=== PATIENT | female | born 1945 | race Caucasian/White ===

== ENCOUNTER 2016-07-29 14:15 | Emergency (ER) | payer MEDICARE ==
[2016-07-29] MEDS ORDERED: LIDOCAINE 1% INJ-PF (10 MG/ML) 30 ML SDV INJ ONE ×2 (14:46→14:48)
--- NOTE | 2016-07-29 14:56 | ER Document Report ---
ED General - General Chief Complaint: Arm Problem Stated Complaint: POSSIBLE INFECTION RIGHT ARM PIT Time seen by provider: 14:37 Mode of Arrival: Stretcher - U and recent that he is in the [facility] family has bypass surgery is Melissa is a now gone with a by Information source: Patient - HPI Notes: Patient presents with intermittent episodes of folliculitis that she's had in the past but they usually improved. She states in her right axillary region she 's had an area that has improved with a salve, but then worsened over the last 2 -3 days and she questions whether or not she may have had a low-grade fever. She arrives afebrile. Patient also reports she has intermittent episodes of nonexertional muscular pain through her chest that is worse when she moves her left arm. She states she's had this for over 40 years and is had over $10,000 worth of workups for the same with no other etiology being found besides a muscular sprain. She denies any chest pain today, and reports no exertional pain in general with walking or going up steps or other activities. Patient reports her last cardiac stress test was approximately 7-8 years ago. She denies any associated dyspnea or nausea or vomiting. No back pain. Patient is a smoker. Family history father of IA. - Related Data Allergies/Adverse Reactions: acetaminophen [From Tylenol] Allergy (Verified 04/04/13 20:15) Iodinated Contrast Media - Oral and [IV Dye, Iodine Containing] Allergy ( Verified 04/04/13 20:16) morphine [Morphine] Allergy (Verified 04/04/13 20:16) Past Medical History - General Information source: Patient - Social History Smoking Status: Former Smoker Chew tobacco use (# tins/day): No Frequency of alcohol use: Occasional Drug Abuse: None Lives with: Family Family History: CAD - Patient's father of an IA at age 46. Mother at age 60. - Past Medical History Cardiac Medical History: Reports: Hx Hypertension Pulmonary Medical History: Reports: Hx Bronchitis - chronic, Hx Pneumonia - 1978 Past Surgical History: Reports: Hx Orthopedic Surgery - Right ankle rebuilt in 1979, Hx Tonsillectomy - when pt was 22 yrs old - Immunizations Hx Diphtheria, Pertussis, Tetanus Vaccination: Yes Review of Systems - Review of Systems Notes: REVIEW OF SYSTEMS: CONSTITUTIONAL : Denies sweats. Denies recent illness. EENT: Denies eye, ear, throat, or mouth pain or symptoms. Denies nasal or sinus congestion or discharge. Denies throat, tongue, or mouth swelling or difficulty swallowing. CARDIOVASCULAR: Denies palpitations or racing or irregular heart beat. Denies ankle edema. RESPIRATORY: Denies cough, cold, or chest congestion. Denies shortness of breath, difficulty breathing, or wheezing. GASTROINTESTINAL: Denies abdominal pain or distention. Denies nausea, vomiting , or diarrhea. Denies blood in vomitus, stools, or per rectum. Denies black, tarry stools. Denies constipation. GENITOURINARY: Denies difficulty urinating, painful urination, burning, frequency, blood in urine, or discharge. FEMALE GENITOURINARY: Denies vaginal bleeding, heavy or abnormal periods, irregular periods. Denies vaginal discharge or odor. MUSCULOSKELETAL: Denies back or neck pain or stiffness. Denies joint pain or swelling. 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 HEMATOLOGIC : Denies easy bruising or bleeding. LYMPHATIC: Denies swollen, enlarged glands. NEUROLOGICAL: Denies confusion or altered mental status. Denies passing out or loss of consciousness. Denies dizziness or lightheadedness. Denies headache. Denies weakness or paralysis or loss of use of either side. Denies problems with gait or speech. Denies sensory loss, numbness, or tingling. Denies seizures. PSYCHIATRIC: Denies anxiety or stress. Denies depression, suicidal ideation, or homicidal ideation. ALL OTHER SYSTEMS REVIEWED AND NEGATIVE. Dictation was performed using [employer] voice recognition software Physical Exam - Vital signs Vitals: Resp Pulse Ox 15 97 07/29/16 15:16 07/29/16 15:16 - Notes Notes: PHYSICAL EXAMINATION: GENERAL: Well-appearing, well-nourished and in no acute distress. HEAD: Atraumatic, normocephalic. EYES: Pupils equal round and reactive to light, extraocular movements intact, conjunctiva are normal. ENT: Nares patent, oropharynx clear without exudates. Moist mucous membranes. NECK: Normal range of motion, supple without lymphadenopathy LUNGS: Breath sounds clear to auscultation bilaterally and equal. No wheezes rales or rhonchi. HEART: Regular rate and rhythm without murmurs. Unable to reproduce any pain to the chest. No erythema. No crepitance. ABDOMEN: Soft, nontender, nondistended abdomen. No guarding, no rebound. No masses appreciated. Female : deferred Musculoskeletal: Normal range of motion, no pitting or edema. No cyanosis. NEUROLOGICAL: Cranial nerves grossly intact. Normal speech, normal gait. Normal sensory, motor exams PSYCH: Normal mood, normal affect. SKIN: Warm, Dry, normal turgor. Patient has some mild folliculitis on the legs, but none on the trunk or in the other intertriginous areas with exception of the right axillary region where she has what appears to be a area of one draining abscess and one 2 x 1.5 cm abscess. Minimal adenopathy noted otherwise. Course - Re-evaluation Re-evalutation: 07/29/16 15:54 Following discussion of risks alternatives benefits, the patient had the right axillary wound area cleaned with Hibiclens, then the wound was locally infiltrate with lidocaine 1% 1 mL, then a small superficial incision 6 mm was made into the draining wound to better facilitate drainage without any significant additional purulence being obtained. After this a 1 cm incision was made into the right axillary abscess and purulent material was obtained which was sent for culture. The wounds were irrigated with saline then the upper abscess was Hibiclens prepped sterilely draped and then packed with quarter-inch iodoform gauze. Patient tolerated the procedure well. Complications none. Blood loss less than 10 mL. Discussion was undertaken with the patient about the need for outpatient cardiology follow-up for repeat cardiac stress testing. She describes her intermittent chest discomfort as being nonexertional, but she has smoking history and family history risk factors with last cardiac stress test several years ago. 07/29/16 15:59 No evidence for acute IA or CHF or obvious cardiac ischemia, but the patient is warned that she needs to follow up with cardiology as soon as possible given her risk factors of family history and prior smoking history. 07/29/16 17:11 - Vital Signs Vital signs: Temp Pulse Resp BP Pulse Ox 34 H 168/88 H 97 07/29/16 16:07 07/29/16 16:07 07/29/16 16:07 - Laboratory Result Diagrams: 07/29/16 15:19 07/29/16 15:19 - EKG Interpretation by Me EKG shows normal: Sinus rhythm Additional EKG results interpreted by me: 04/24/17 15:08 EKG as interpreted by me showed normal sinus rhythm a rate of 82. There is no gross evidence for acute IA or ischemia identified. There is no change from previous EKG reviewed from 04/04/13. Discharge - Discharge Clinical Impression: Abscess Chest pain Qualifiers: Chest pain type: unspecified Qualified Code(s): R07.9 - Chest pain, unspecified Condition: Stable Disposition: HOME, SELF-CARE Instructions: Abscess ([facility]), Post Incision and Drainage, Family Physicians / Practices Additional Instructions: Chest Pain of Unclear Cause The exact cause of your chest pain isn't clear. Fortunately, there is no evidence of a dangerous medical condition. Further testing may be required to find the source of the pain. Most often, we find that this pain is coming from the chest wall -- the muscles or rib joints in the chest. But chest pain can come from the lung and lung lining, the esophagus, the heart valves or heart lining, and even the stomach or gallbladder. Rest. Eat lightly until the pain is gone. We may prescribe medicine for pain and inflammation. You should call the physician immediately if the pain radiates to the shoulder, jaw or arms; if you start to run a fever or develop a cough; or if you develop shortness of breath, or other new or alarming symptoms. Wound packing needs to come out in 2 days. Keep the area clean and apply warm compresses. Return to the ED in case of chest pain, difficulty breathing, fever or chills or worsening redness or swelling. Follow-up with Dr. Mccormick for repeat cardiac stress testing. Prescriptions: Clindamycin HCl 300 mg PO TID #30 capsule Referrals: SUKH MCCORMICK MD [ACTIVE STAFF] - Follow up as needed
[2016-07-29 15:28] LABS: ABSOLUTE BASOPHILS # (AUTO) 0.1 10^3/uL (0.0-0.2); ABSOLUTE EOSINOPHILS # (AUTO) 0.3 10^3/uL (0.0-0.6); ABSOLUTE LYMPHOCYTES (AUTO) 2.5 10^3/uL (0.5-4.7); ABSOLUTE MONOCYTES (AUTO) 0.6 10^3/uL (0.1-1.4); BASOPHILS % (AUTO) 0.6 % (0-2); EOSINOPHILS % (AUTO) 2.8 % (0-6); HEMATOCRIT 40.7 % (36.0-47.0); HEMOGLOBIN 13.7 g/dL (12.0-15.5); HGB HCT DIFFERENCE 0.4; LYMPHOCYTES % (AUTO) 26.4 % (13-45); MEAN CORPUSCULAR HEMOGLOBIN 28.1 pg (27.0-33.4); MEAN CORPUSCULAR HGB CONC 33.7 g/dL (32.0-36.0); MEAN CORPUSCULAR VOLUME 83 fl (80-97); MONOCYTES % (AUTO) 6.1 % (3-13); RED BLOOD COUNT 4.89 10^6/uL (3.72-5.28); RED CELL DISTRIBUTION WIDTH 13.4 % (11.5-14.0); SEGMENTED NEUTROPHILS % (AUTO) 64.1 % (42-78); WHITE BLOOD COUNT 9.4 10^3/uL (4.0-10.5)
[2016-07-29 15:45] LABS: ALANINE AMINOTRANSFERASE 25 U/L (9-52); ALBUMIN 4.5 g/dL (3.5-5.0); ALKALINE PHOSPHATASE 57 U/L (38-126); ANION GAP 12 (5-19); ASPARTATE AMINO TRANSFERASE 20 U/L (14-36); BILIRUBIN,DIRECT 0.3 mg/dL (0.0-0.4); BILIRUBIN,TOTAL 0.6 mg/dL (0.2-1.3); BLOOD UREA NITROGEN 13 mg/dL (7-20); CALCIUM 9.8 mg/dL (8.4-10.2); CARBON DIOXIDE 28 mmol/L (22-30); CHLORIDE 104 mmol/L (98-107); CREATININE RESULT 0.71 mg/dL (0.52-1.25); GLUCOSE 98 mg/dL (75-110); POTASSIUM 4.3 mmol/L (3.6-5.0); SODIUM 143.6 mmol/L (137-145); TOTAL PROTEIN 7.2 g/dL (6.3-8.2)
[2016-07-29 16:55] VITALS: BP 168/88
[2016-07-29] MEDS ORDERED: CLINDAMYCIN HCL 150 MG CAPSULE PO ONE (17:06)
--- NOTE | 2016-07-29 21:39 | EKG REPORT ---
SEVERITY:- NORMAL ECG - SINUS RHYTHM : Confirmed by: Bryan Castillo 29-Jul-2016 21:38:25
== END 2016-07-29 17:32 | disposition home or self-care (01) ==
LOC: ER 14:15
PROC: 0H9BXZZ Drainage of Right Upper Arm Skin, External Approach (ICD-10-PCS; principal; 2016-07-29)
DX: L02.411 Cutaneous abscess of right axilla (principal); R07.9 Chest pain, unspecified; L73.9 Follicular disorder, unspecified; F17.200 Nicotine dependence, unspecified, uncomplicated; I10 Essential (primary) hypertension; Z88.6 Allergy status to analgesic agent
CPT/HCPCS: 93005; 99284; 36415; 87070; 87205; 85025; 87077; 80053; 84484; 87186; 71020; 93010; 10060; A9270

== ENCOUNTER 2016-07-31 10:35 | Emergency (ER) | payer MEDICARE ==
[2016-07-31 10:40] VITALS: BP 156/82
--- NOTE | 2016-07-31 11:30 | ER Document Report ---
HPI - HPI Pain Level: 1 Context: 71 yo female c/o rash and itching after 3 doses of clindamycin. pt seen in ED 3 days ago for axillary abscess which was incised and drained. culture report showing + MRSA. Associated Symptoms: None Exacerbated by: Denies Relieved by: Denies Similar symptoms previously: No Recently seen / treated by doctor: Yes - ROS Systems Reviewed and Negative: Yes All other systems reviewed and negative - REPRODUCTIVE LMP: N/A Reproductive: DENIES: : - DERM Skin Color: Other Past Medical History - General Information source: Patient - Social History Smoking Status: Current Every Day Smoker Frequency of alcohol use: None Drug Abuse: None Lives with: Family Family History: CAD - Patient's father of an SC at age 46. Mother at age 60. - Past Medical History Cardiac Medical History: Reports: Hx Hypertension Pulmonary Medical History: Reports: Hx Bronchitis - chronic, Hx Pneumonia - 1978 Renal/ Medical History: Denies: Hx Peritoneal Dialysis Past Surgical History: Reports: Hx Orthopedic Surgery - Right ankle rebuilt in 1979, Hx Tonsillectomy - when pt was 22 yrs old - Immunizations Hx Diphtheria, Pertussis, Tetanus Vaccination: Yes Vertical Provider Document - CONSTITUTIONAL Agree With Documented VS: Yes Exam Limitations: No Limitations - INFECTION CONTROL TRAVEL OUTSIDE OF THE [place] IN LAST 30 DAYS: No - HEENT HEENT: Atraumatic, PERRLA - NECK Neck: Normal Inspection, Supple - RESPIRATORY Respiratory: Breath Sounds Normal, No Respiratory Distress O2 Sat by Pulse Oximetry: 97 - CARDIOVASCULAR Cardiovascular: Regular Rate, Regular Rhythm - NEURO Level of Consciousness: Awake, Alert, Appropriate - DERM Integumentary: Warm, Dry, Abscess - healing abscess right axillary Course - Re-evaluation Re-evalutation: 07/31/16 11:26 BP slightly elevated. pt has hx/o HTN. taking meds as prescribed. - Vital Signs Vital signs: Temp Pulse Resp BP Pulse Ox 98.4 F 104 H 18 156/82 H 97 07/31/16 10:37 07/31/16 10:37 07/31/16 10:37 07/31/16 10:37 07/31/16 10:37 Discharge - Discharge Clinical Impression: Medication intolerance, MRSA (methicillin resistant staph aureus) culture positive, Abscess Condition: Stable Disposition: HOME, SELF-CARE Instructions: Abscess ([facility]), Trimethoprim-Sulfa ([facility]) Additional Instructions: take medication as prescribed you may take Benadryl as needed for itch wash area with soap and water your culture was positive for MRSA. good hand washing is essential. clean common surfaces with clorox follow up with your primary care Prescriptions: Sulfamethoxazole/Trimethoprim [Bactrim Ds Tablet] 1 each PO BID #20 tablet Forms: Elevated Blood Pressure
== END 2016-07-31 11:35 | disposition home or self-care (01) ==
LOC: ER 10:35
DX: L29.9 Pruritus, unspecified (principal); R21 Rash and other nonspecific skin eruption; T36.8X5A Adverse effect of other systemic antibiotics, initial encounter; L02.411 Cutaneous abscess of right axilla; B95.62 Methicillin resistant Staphylococcus aureus infection as the cause of diseases classified elsewhere; F17.200 Nicotine dependence, unspecified, uncomplicated; I10 Essential (primary) hypertension
CPT/HCPCS: 99283

== ENCOUNTER 2017-03-14 11:43 | Emergency (ER) | payer MEDICARE ==
[2017-03-14 12:02] VITALS: BP 181/90
--- NOTE | 2017-03-14 12:40 | ER Document Report ---
HPI - HPI Patient complains to provider of: 3 abscesses under left axilla Onset: Last week Onset/Duration: Gradual Pain Level: 1 Context: 71-year-old female with a history of MRSA is complaining of 3 abscesses under the left axilla. She is not shaving or using deodorant. no Fever or chills. Associated Symptoms: None Exacerbated by: Denies Relieved by: Denies Similar symptoms previously: Yes - ROS ROS below otherwise negative: Yes Systems Reviewed and Negative: Yes All other systems reviewed and negative - REPRODUCTIVE Reproductive: DENIES: : Past Medical History - General Information source: Patient - Social History Smoking Status: Current Every Day Smoker Frequency of alcohol use: None Drug Abuse: None Lives with: Alone Family History: CAD - Patient's father of an NV at age 46. Mother at age 60. - Past Medical History Cardiac Medical History: Reports: Hx Hypertension Pulmonary Medical History: Reports: Hx Bronchitis - chronic, Hx Pneumonia - 1978 Renal/ Medical History: Denies: Hx Peritoneal Dialysis Skin Medical History: Reports Hx MRSA Past Surgical History: Reports: Hx Orthopedic Surgery - Right ankle rebuilt in 1979, Hx Tonsillectomy - when pt was 22 yrs old - Immunizations Hx Diphtheria, Pertussis, Tetanus Vaccination: Yes Vertical Provider Document - CONSTITUTIONAL Agree With Documented VS: Yes Exam Limitations: No Limitations - INFECTION CONTROL TRAVEL OUTSIDE OF THE [place] IN LAST 30 DAYS: No - HEENT HEENT: Normocephalic - NECK Neck: Supple - RESPIRATORY Respiratory: Breath Sounds Normal, No Respiratory Distress O2 Sat by Pulse Oximetry: 97 - CARDIOVASCULAR Cardiovascular: Regular Rate, Regular Rhythm - MUSCULOSKELETAL/EXTREMETIES Musculoskeletal/Extremeties: MAEW, FROM - NEURO Level of Consciousness: Awake, Alert, Appropriate - DERM Integumentary: Abscess - 3 5 mm papular follicular lesions left axilla Course - Vital Signs Vital signs: Temp Pulse Resp BP Pulse Ox 98.4 F 86 16 181/90 H 97 03/14/17 12:00 03/14/17 12:00 03/14/17 12:00 03/14/17 12:00 03/14/17 12:00 Discharge - Discharge Clinical Impression: Folliculitis of left axilla, Medication refill, Hx of primary hypertension Condition: Good Disposition: HOME, SELF-CARE Instructions: Bactroban Ointment ([facility]), Folliculitis ([facility]), Trimethoprim-Sulfa ([facility]) Additional Instructions: to er if worse put small amount of Bactroban in each nostril and squeeze her nostrils together twice a day for 5 days Bactroban 3 times a day to the 3 small abscesses in her left armpit wash hands well finish the Septra antibiotic see your doctor in [place] Please complete the patient satisfaction survey if you get one, and return it.. If you do not receive a survey, then you can go to the [facility] website, [email or web address] and place your comments about your very good care. Thank you very much. It was a pleasure being your medical provider today. Prescriptions: Lisinopril 20 mg PO DAILY #30 tablet Mupirocin [Bactroban 2% Ointment 22 gm] 1 applic TP TID #1 tube Sulfamethoxazole/Trimethoprim [Sulfamethoxazole-Tmp Ds Tablet] 1 each PO BID # 14 tablet Referrals: SACHIN BROWN MD [Primary Care Provider] - Follow up as needed
== END 2017-03-14 13:31 | disposition home or self-care (01) ==
LOC: ER 11:43
DX: L73.9 Follicular disorder, unspecified (principal); I10 Essential (primary) hypertension; F17.200 Nicotine dependence, unspecified, uncomplicated; Z86.14 Personal history of Methicillin resistant Staphylococcus aureus infection
CPT/HCPCS: 99282

== ENCOUNTER 2018-09-12 15:59 | Emergency (ER) | payer MEDICARE ==
[2018-09-12] MEDS ORDERED: CIPROFLOXACIN HCL/DEXAMETH OTIC DROP 7.5 ML AS ONE (16:39)
--- NOTE | 2018-09-12 16:41 | ER Document Report ---
HPI - HPI Time Seen by Provider: 09/12/18 16:39 Pain Level: 3 Notes: Patient is a 73-year-old female with a history of hypertension and MRSA who presents complaining of 3 small swollen areas in her right axilla that she would like evaluated as well as complaining of right ear pain and swelling in the canal for the past couple weeks. Patient believes that she may have an ear infection. She is eating and drinking without difficulty. She is urinating normally. She has no other concerns or complaints. Denies any headache, fever, neck pain, changes in vision/speech/mentation/hearing, URI, sore throat, chest pain, palpitations, syncope, cough, shortness of breath, wheeze, dyspnea, abdominal pain, nausea/vomiting/diarrhea, urinary retention, dysuria, hematuria. - ROS Systems Reviewed and Negative: Yes All other systems reviewed and negative - REPRODUCTIVE Reproductive: DENIES: : Past Medical History - Social History Smoking Status: Current Some Day Smoker Family History: CAD - Patient's father of an AR at age 46. Mother at age 60. - Past Medical History Cardiac Medical History: Reports: Hx Hypertension Pulmonary Medical History: Reports: Hx Bronchitis - chronic, Hx Pneumonia - 1978 Renal/ Medical History: Denies: Hx Peritoneal Dialysis Skin Medical History: Reports Hx MRSA Past Surgical History: Reports: Hx Orthopedic Surgery - Right ankle rebuilt in 1979, Hx Tonsillectomy - when pt was 22 yrs old - Immunizations Hx Diphtheria, Pertussis, Tetanus Vaccination: Yes Vertical Provider Document - CONSTITUTIONAL Agree With Documented VS: Yes Notes: PHYSICAL EXAMINATION: GENERAL: Well-appearing, well-nourished and in no acute distress. A&Ox4. Answers questions appropriately. Moves comfortably w/o notable distress HEAD: Atraumatic, normocephalic. EYES: Pupils equal round and reactive to light, extraocular movements intact, sclera anicteric, conjunctiva are normal. ENT: Rt EAC swollen, tender w/o discharge. Lt EAC wnl. + Tenderness to tragus Rt. No mastoid tenderness bilaterally. TM's intact b/l without erythema, fluid, or perforation. Nares patent and without discharge. oropharynx no erythema without exudates. No tonsilar hypertrophy without erythema or exudate. No palatine shift. Uvula midline. No tongue protrusion. No drooling, hoarseness, or airway compromise. Moist mucous membranes. No sinus tenderness. NECK: Normal range of motion, supple without lymphadenopathy. No rigidity/meningismus. LUNGS: Breath sounds clear to auscultation bilaterally and equal. No wheezes rales or rhonchi. No retractions HEART: Regular rate and rhythm without murmurs, rubs, gallops. NEUROLOGICAL: Normal speech, normal gait. PSYCH: Normal mood, normal affect. SKIN: Rt axilla: there are 3 small approx 0.5cm indurated moveable erythemic papular areas noted w/o obvious fluctuance. No streaks or purulence. Papules/affected area feels superficial and I can get my fingers underneath the whole thing pretty easily. - INFECTION CONTROL TRAVEL OUTSIDE OF THE [place] IN LAST 30 DAYS: No Course - Re-evaluation Re-evalutation: 09/12/18 Patient is an afebrile, well-hydrated, 73-year-old female who presents with acute otitis externa of the right ear as well as very small papular infectious areas to the rt axilla. Vitals are acceptable without significant tachycardia, tachypnea, or hypoxia. PE is otherwise unremarkable. Ear wick and Ciprodex were applied to the right ear. Because of the size of the papules and them being superficial, needle incision and drainage was performed successfully without any complications and scant purulent material was obtained from 2 of the 3. Wound dressing was placed and wound instructions reviewed. Reviewed with patient that if these areas get worse that she may warrant a complete incision and drainage. Wound culture was obtained. Low suspicion for any sepsis, meningitis, severe dehydration, respiratory compromise, mastoiditis, or other systemic emergent condition at this time. Patient is aware that condition can change from initial presentation and she needs to monitor symptoms closely and seek medical attention with any acute changes. I will send her home with a prescription for Keflex and Bactrim. Conservative measures for symptoms otherwise. Recheck with your PCM in 2 to 3 days. Return to the ED with any other worsening/concerning symptoms. Patient is in agreement. - Vital Signs Vital signs: Temp Pulse Resp BP Pulse Ox 98.2 F 100 15 164/106 H 95 09/12/18 16:02 09/12/18 16:02 09/12/18 16:02 09/12/18 16:02 06/08/19 16:02 Procedures - Incision and Drainage Right Axilla Type: Simple mL's of anesthetic: 0 - Patient tolerated procedure well without complication I&D procedure: Betadine prep applied, Sterile dressing applied Incision Method: Incision made with needle Amount/type of drainage: scant purulent from 2 of 3 papular areas - Additional Procedures ear wick placement Additional Procedures: Other - Ear wick placed without any complications. Patient tolerated procedure well. Discharge - Discharge Clinical Impression: Abscess of axilla, right Acute otitis externa of right ear Qualifiers: Otitis externa type: unspecified type Qualified Code(s): H60.501 - Unspecified acute noninfective otitis externa, right ear Condition: Stable Disposition: HOME, SELF-CARE Instructions: Cephalexin ([facility]), Using Ear Drops with a Wick ([facility]), Otitis Externa ([facility]), Trimethoprim-Sulfa ([facility]) Additional Instructions: Maintain adequate fluid intake Take meds as directed Keep the skin clean Wash with soap and water Triple antibiotic ointment daily Take medication as directed Monitor for any worsening symptoms tylenol/ibuprofen as needed Avoid Q-tips in the ears over the counter cold medication as needed for symptoms F/u: with your PCM in 3-5 days for a recheck Consider consult with ENT Return to the ED with any worsening symptoms and/or development of fever, headache, chest pain, palpitations, syncope, shortness of breath, trouble breathing, abdominal pain, n/v/d, abscess, purulent discharge, red streaks, worsening swelling, or other worsening symptoms that are concerning to you. Prescriptions: Cephalexin Monohydrate [Keflex 500 mg Capsule] 500 mg PO TID #30 capsule Sulfamethoxazole/Trimethoprim [Bactrim Ds Tablet] 1 each PO BID #20 tablet Forms: Elevated Blood Pressure, Smoking Cessation Education Referrals: SACHIN BROWN MD [Primary Care Provider] - 09/15/18
[2018-09-12 17:57] VITALS: BP 158/98
== END 2018-09-12 17:56 | disposition home or self-care (01) ==
LOC: ER 15:59
DX: H60.501 Unspecified acute noninfective otitis externa, right ear (principal); L02.411 Cutaneous abscess of right axilla; R22.1 Localized swelling, mass and lump, neck; F17.200 Nicotine dependence, unspecified, uncomplicated; I10 Essential (primary) hypertension; Z86.14 Personal history of Methicillin resistant Staphylococcus aureus infection
CPT/HCPCS: 99283; 87070; 87205; 87077; 87186; 10060; J3490

== ENCOUNTER 2019-05-11 10:39 | Emergency (ER) | payer MEDICARE ==
[2019-05-11 12:00] LABS: ABSOLUTE EOSINOPHILS # (AUTO) 0.2 10^3/uL (0.0-0.6); ABSOLUTE MONOCYTES (AUTO) 0.4 10^3/uL (0.1-1.4); ABSOLUTE NEUT (AUTO) 2.7 10^3/uL (1.7-8.2); BASOPHILS % (AUTO) 0.8 % (0-2); EOSINOPHILS % (AUTO) 2.9 % (0-6); HEMATOCRIT 40.9 % (36.0-47.0); HEMOGLOBIN 13.9 g/dL (12.0-15.5); LYMPHOCYTES % (AUTO) 38.2 % (13-45); MEAN CORPUSCULAR HEMOGLOBIN 28.7 pg (27.0-33.4); MEAN CORPUSCULAR VOLUME 85 fl (80-97); MONOCYTES % (AUTO) 6.7 % (3-13); PLATELET COUNT 271 10^3/uL (150-450); RED BLOOD COUNT 4.83 10^6/uL (3.72-5.28); RED CELL DISTRIBUTION WIDTH 13.9 % (11.5-14.0); SEGMENTED NEUTROPHILS % (AUTO) 51.4 % (42-78); TOTAL CELLS COUNTED % (AUTO) 100 %; WHITE BLOOD COUNT 5.2 10^3/uL (4.0-10.5)
[2019-05-11 12:04] LABS: ALBUMIN 4.2 g/dL (3.5-5.0); ALKALINE PHOSPHATASE 54 U/L (38-126); ANION GAP 10 (5-19); ASPARTATE AMINO TRANSFERASE 29 U/L (14-36); BILIRUBIN,DIRECT 0.3 mg/dL (0.0-0.4); BILIRUBIN,TOTAL 0.4 mg/dL (0.2-1.3); BLOOD UREA NITROGEN 10 mg/dL (7-20); CALCIUM 9.4 mg/dL (8.4-10.2); CARBON DIOXIDE 28 mmol/L (22-30); CHLORIDE 102 mmol/L (98-107); CREATINE KINASE 142 U/L (30-135); GLUCOSE 103 mg/dL (75-110); POTASSIUM 4.3 mmol/L (3.6-5.0); TOTAL PROTEIN 7.2 g/dL (6.3-8.2)
[2019-05-11 12:17] LABS: CREATINE KINASE MB 2.78 ng/mL (<4.55)
[2019-05-11 12:27] LABS: APPEARANCE,URINE CLEAR; BILIRUBIN,URINE NEGATIVE (NEGATIVE); COLOR,URINE YELLOW; GLUCOSE, URINE NEGATIVE (NEGATIVE); KETONES,URINE NEGATIVE (NEGATIVE); LEUKOCYTE ESTERASE,URINE NEGATIVE (NEGATIVE); NITRITE,URINE NEGATIVE (NEGATIVE); PROTEIN,URINE NEGATIVE (NEGATIVE); URINE SPECIFIC GRAVITY 1.006; UROBILINOGEN,URINE NEGATIVE mg/dL (<2.0)
[2019-05-11 12:27] LABS: TROPONIN I < 0.012 ng/mL
--- NOTE | 2019-05-11 12:42 | RADIOLOGY REPORT (SQ) ---
EXAM DESCRIPTION: CHEST SINGLE VIEW COMPLETED DATE/TIME: 05/11/2019 12:03 pm REASON FOR STUDY: bed 9 db COMPARISON: None. NUMBER OF VIEWS: One view. TECHNIQUE: Single frontal radiographic view of the chest acquired. LIMITATIONS: None. FINDINGS: LUNGS AND PLEURA: No opacities, masses or pneumothorax. No pleural effusion. MEDIASTINUM AND HILAR STRUCTURES: No masses. Contour normal. HEART AND VASCULAR STRUCTURES: Heart normal in size. Normal vasculature. BONES: No acute findings. HARDWARE: None in the chest. OTHER: No other significant finding. IMPRESSION: NO SIGNIFICANT RADIOGRAPHIC FINDING IN THE CHEST. TECHNICAL DOCUMENTATION: JOB ID: [id number] [employer]- All Rights Reserved Reading location - IP/workstation name: [email or web address]
[2019-05-11] MEDS ORDERED: IPRATROPIUM/ALBUTEROL 0.5-2.5 MG/3 ML AMPUL NEB ONE ×2 (14:16→15:31)
--- NOTE | 2019-05-11 14:22 | ER Document Report ---
ED General - General Chief Complaint: Shortness Of Breath Stated Complaint: SHORTNESS OF BREATH Time Seen by Provider: 05/11/19 13:53 Primary Care Provider: SACHIN BROWN MD [Primary Care Provider] - Follow up as needed Notes: Patient is a 74-year-old white female with a past medical history of COPD who presents to the emergency department today by way of EMS with a chief complaint of shortness of breath x2 days. States is progressively worsened. She states about 3 weeks ago she was seen at her primary doctor's office for the same, was given a prescription for a Z-Héctor and was supposed to be given an outpatient albuterol inhaler but she did never receive it. She states she felt like she could not take a deep breath at home and was concerning became anxious so she called 911. She states this feels typical of her chronic bronchitis. She takes no medications regularly for this. She reports only taking lisinopril daily. She does still smoke cigarettes. She denies any chest pain, lower extremity p ain or swelling, history of DVT or PE, recent surgery, recent mobilization or recent travel. Denies any hemoptysis or hormone replacement therapy. TRAVEL OUTSIDE OF THE [place] IN LAST 30 DAYS: No - Related Data Allergies/Adverse Reactions: acetaminophen [From Tylenol] Allergy (Verified 09/12/18 16:00) Iodinated Contrast Media [IV Dye, Iodine Containing] Allergy (Verified 09/12/18 16:00) morphine [Morphine] Allergy (Verified 09/12/18 16:00) Past Medical History - Social History Smoking Status: Unknown if Ever Smoked Family History: CAD - Patient's father of an MN at age 46. Mother at age 60. Patient has suicidal ideation: No Patient has homicidal ideation: No - Past Medical History Cardiac Medical History: Reports: Hx Hypertension Pulmonary Medical History: Reports: Hx Bronchitis - chronic, Hx Pneumonia - 1978 Renal/ Medical History: Denies: Hx Peritoneal Dialysis Skin Medical History: Reports Hx MRSA Past Surgical History: Reports: Hx Orthopedic Surgery - Right ankle rebuilt in 1979, Hx Tonsillectomy - when pt was 22 yrs old - Immunizations Hx Diphtheria, Pertussis, Tetanus Vaccination: Yes Review of Systems - Review of Systems Respiratory: Cough, Short of breath -: Yes All other systems reviewed and negative Physical Exam - Vital signs Vitals: Temp Resp BP Pulse Ox 98.1 F 25 H 147/90 H 97 05/11/19 11:01 05/11/19 11:01 05/11/19 11:01 05/11/19 11:01 - General General appearance: Appears well, Alert - HEENT Head: Normocephalic, Atraumatic Eyes: Normal Pupils: PERRL - Respiratory Respiratory status: No respiratory distress Chest status: Nontender Breath sounds: Rhonchi, Other - Coarse breath sounds throughout, nonproductive cough. Some wheezing, no rales Chest palpation: Normal - Cardiovascular Rhythm: Regular Heart sounds: Normal auscultation Murmur: No - Abdominal Inspection: Normal Distension: No distension Bowel sounds: Normal Tenderness: Nontender Organomegaly: No organomegaly - Extremities General upper extremity: Normal inspection, Nontender, Normal color, Normal ROM, Normal temperature General lower extremity: Normal inspection, Nontender, Normal color, Normal ROM, Normal temperature, Normal weight bearing. No: Gianni's sign - Neurological Neuro grossly intact: Yes Cognition: Normal Orientation: AAOx4 [place] Coma Scale Eye Opening: Spontaneous [place] Coma Scale Verbal: Oriented [place] Coma Scale Motor: Obeys Commands [place] Coma Scale Total: 15 Speech: Normal Sensory: Normal - Psychological Associated symptoms: Normal affect, Normal mood - Skin Skin Temperature: Warm Skin Moisture: Dry Skin Color: Normal Course - Re-evaluation Re-evalutation: 05/11/19 14:20 EKG sinus rhythm at 90 bpm. Normal intervals. No STEMI. Interpreted by ED attending as normal EKG. Patient was given Solu-Medrol 125 IV by EMS. 1 neb treatment in the mass. Will give another neb treatment, work-up is unremar kable. Will monitor 05/11/19 15:31 Reevaluation at this time patient is moving air better throughout, wheezing has decreased however she still tight. Will administer another DuoNeb and reevaluate 05/11/19 16:32 Reevaluation at this time. Patient is clear to auscultation bilaterally, moving air much better. History and physical consistent with a COPD exacerbation. She is stable and appropriate for discharge and outpatient follow-up & treatment. I counseled her at length regarding the importance of outpatient follow-up and advised that she return here or any ER immediately with any new, persistent or worsening symptoms. She verbalized understood and agreed. - Vital Signs Vital signs: Temp Pulse Resp BP Pulse Ox 98.1 F 110 H 22 H 141/66 H 92 05/11/19 11:01 05/11/19 16:17 05/11/19 16:17 05/11/19 15:58 05/11/19 15:58 - Laboratory Result Diagrams: 05/11/19 11:25 05/11/19 11:25 Laboratory results interpreted by me: 05/11/19 05/11/19 11:25 12:00 Creatine Kinase 142 H Urine Blood SMALL H Discharge - Discharge Clinical Impression: COPD exacerbation Condition: Stable Disposition: HOME, SELF-CARE Instructions: Chronic Obstructive Lung Disease ([facility]) Additional Instructions: Follow-up with your regular doctor in 2 to 3 days for reevaluation. Return here or any ER immediately with any new, persistent or worsening symptoms. Prescriptions: Methylprednisolone [Medrol Dosepack (4 mg/Tab) 21 Tab/Dosepak] 4 mg PO ASDIR PRN #21 [id number] PRN Reason: Albuterol Sulfate [Proair Hfa Inhalation Aerosol 8.5 gm Mdi] 1 puff IH Q6 PRN #1 mdi PRN Reason: Referrals: SACHIN BROWN MD [Primary Care Provider] - Follow up as needed
[2019-05-11 16:53] VITALS: BP 128/70
--- NOTE | 2019-05-11 22:01 | EKG REPORT ---
SEVERITY:- NORMAL ECG - SINUS RHYTHM : Confirmed by: Kristal Lara MD 11-May-2019 22:00:05
== END 2019-05-11 16:58 | disposition home or self-care (01) ==
LOC: ER 10:39
DX: J44.1 Chronic obstructive pulmonary disease with (acute) exacerbation (principal); R06.02 Shortness of breath; R05 Cough; F17.210 Nicotine dependence, cigarettes, uncomplicated; I10 Essential (primary) hypertension; Z79.899 Other long term (current) drug therapy; Z88.8 Allergy status to other drugs, medicaments and biological substances; Z91.041 Radiographic dye allergy status; Z88.6 Allergy status to analgesic agent; Z88.5 Allergy status to narcotic agent
CPT/HCPCS: 93005; 94640 ×2; 99285; 36415; 82553; 82550; 85025; 80053; 81001; 84484; 71045; 93010; A9270; J7620